=== PATIENT | male | born 1960 | race African-American/Black ===

== ENCOUNTER 2020-06-27 10:00 | Inpatient (IN) ==
[2020-06-27 10:39] LABS: Basophils % 0.2 % (0.0-0.8); Eosinophils % 0.3 % (0.00-10.9); Hematocrit 44.8 VOL% (42.0-52.0); Hemoglobin 15.1 GM/DL (14.0-18.0); Immature Granulocytes % 0.5 %; Immature Granulocytes Absolute 0.05 #; Lymphocytes # 2.5 10*3/uL (1.4-4.0); Mean Corpuscular HGB Conc 33.7 GM/DL (32-36); Mean Corpuscular Volume 91.8 FL (87-102); Monocytes % 10.5 % (1.7-12.7); Neutrophils % 65.5 % (38.7-73.9); Red Blood Count 4.88 MC/CUMM (3.8-5.5); Red Cell Distribution Width 15.2 % (9.3-17.3); White Blood Count 10.8 T/CUMM (4-12)
[2020-06-27 10:49] LABS: Platelet Count 1 T/CUMM (130-400)
[2020-06-27 11:03] LABS: Albumin 4.1 G/DL (3.4-5.0); Bilirubin,Total 1.4 MG/DL (0.2-1.0); Calcium 10.1 MG/DL (8.5-10.1); Osmolality,Calculated 269.4 MOS/KG (273-304); Total Protein 9.3 G/DL (6.4-8.3)
[2020-06-27 11:20] LABS: PT Patient Result 11.2 SECS (9.8-11.9)
[2020-06-27 11:50] LABS: Albumin 4.2 G/DL (3.4-5.0); Bilirubin,Total 1.4 MG/DL (0.2-1.0); Calcium 9.5 MG/DL (8.5-10.1); Osmolality,Calculated 273.1 MOS/KG (273-304); Total Protein 8.9 G/DL (6.4-8.3)
[2020-06-27] MEDS ORDERED: GLUCAGON 1 MG VIAL IM PRN (13:33)
[2020-06-27] MEDS ORDERED: DEXTROSE 50% 25 GM/50 ML VIAL IV PRN ×2 (13:33→13:38)
[2020-06-27] MEDS: SODIUM CHLORIDE 0.9% 1,000 ML IV SCH (16:14)
[2020-06-27 16:21] LABS: Bilirubin,Urine Negative (Negative); Blood, Urine Moderate mg/dL (Negative); Glucose,Urine (UA) Negative (Negative); Ketones,Urine Negative (Negative); Mucus,Urine Occasional /LPF (Occasional); Nitrite,Urine Negative (Negative); Protein,Urine Negative; RBC,Urine 5 /HPF (0-4); Squamous Epithelial Cell,Urine Occasional /HPF (0-10); Urine Appearance CLEAR (Clear); Urine Color Yellow (Yellow); Urine Specific Gravity 1.015 (1.001-1.035); Urine Urobilinogen < 2.0 EU/DL (0.2-1.0); WBC,Urine 1 /HPF (0-6)
[2020-06-27] MEDS ORDERED: SODIUM CHLORIDE 0.9% 1,000 ML IV PRN (18:15)
[2020-06-27] MEDS ORDERED: IMMUNE GLOBULIN 10% 20 GM, IMMUNE GLOBULIN 10% 10 GM in PREMIX 1 EACH IV ONE (18:30)
[2020-06-27] MEDS ORDERED: INFLUENZA VIRUS VACCINE 0.5 ML SYRINGE IM ONE (18:37)
[2020-06-27] MEDS: BRIMONIDINE 0.2% OPH SOLN 5 ML BOTTLE BOTH EYES SCH (22:16)
[2020-06-27] MEDS: methylPREDNISolone SOD SUC 40 MG/1 ML VIAL IV SCH (22:16)
[2020-06-27] MEDS: FERROUS SULFATE 325 MG TABLET PO SCH (22:17)
[2020-06-27] MEDS: DORZOLAMIDE/TIMOLOL OPH SOLN 10 ML BOTTLE BOTH EYES SCH (22:17)
[2020-06-27] MEDS: carvediloL 6.25 MG TABLET PO SCH (22:17)
[2020-06-28 05:36] LABS: Basophils % 0.1 % (0.0-0.8); Hematocrit 39.9 VOL% (42.0-52.0); Hemoglobin 13.1 GM/DL (14.0-18.0); Immature Granulocytes % 0.5 %; Immature Granulocytes Absolute 0.04 #; Lymphocytes # 0.8 10*3/uL (1.4-4.0); Lymphocytes % 10.4 % (21.2-54.2); Mean Corpuscular HGB Conc 32.8 GM/DL (32-36); Mean Corpuscular Volume 92.8 FL (87-102); Monocytes % 1.2 % (1.7-12.7); Neutrophils % 87.8 % (38.7-73.9); White Blood Count 7.6 T/CUMM (4-12)
[2020-06-28] MEDS: SODIUM CHLORIDE 0.9% 1,000 ML IV SCH ×2 (05:47→20:56)
[2020-06-28 05:51] LABS: Albumin 3.3 G/DL (3.4-5.0); Bilirubin,Total 1.3 MG/DL (0.2-1.0); Total Protein 8.5 G/DL (6.4-8.3)
[2020-06-28 06:25] LABS: Platelet Count 1 T/CUMM (130-400)
[2020-06-28] MEDS: BRIMONIDINE 0.2% OPH SOLN 5 ML BOTTLE BOTH EYES SCH ×2 (08:46→20:57)
[2020-06-28] MEDS: methylPREDNISolone SOD SUC 40 MG/1 ML VIAL IV SCH ×2 (08:46→20:57)
[2020-06-28] MEDS: carvediloL 6.25 MG TABLET PO SCH ×2 (08:46→17:16)
[2020-06-28] MEDS: DORZOLAMIDE/TIMOLOL OPH SOLN 10 ML BOTTLE BOTH EYES SCH ×3 (08:46→20:57)
[2020-06-28] MEDS: CHOLECALCIFEROL 5,000 UNIT TABLET PO SCH (08:46)
[2020-06-28] MEDS: FERROUS SULFATE 325 MG TABLET PO SCH ×2 (08:47→20:57)
[2020-06-28] MEDS: lisinopriL 20 MG TABLET PO SCH (12:13)
[2020-06-28] MEDS: INSULIN LISPRO 100 UNIT/ML SUBCUT SCH ×3 (12:30→20:56)
[2020-06-28] MEDS ORDERED: LIDOCAINE 2% VISCOUS 100 ML BOTTLE SWISH/SPIT ONE (14:42)
[2020-06-29] MEDS: methylPREDNISolone SOD SUC 40 MG/1 ML VIAL IV SCH ×2 (05:38→17:57)
[2020-06-29 07:07] LABS: Basophils % 0.1 % (0.0-0.8); Hematocrit 34.6 VOL% (42.0-52.0); Hemoglobin 11.6 GM/DL (14.0-18.0); Immature Granulocytes % 0.7 %; Immature Granulocytes Absolute 0.09 #; Lymphocytes % 7.5 % (21.2-54.2); Mean Corpuscular HGB Conc 33.5 GM/DL (32-36); Monocytes % 2.1 % (1.7-12.7); Neutrophils % 89.6 % (38.7-73.9); Red Blood Count 3.76 MC/CUMM (3.8-5.5); Red Cell Distribution Width 14.7 % (9.3-17.3); White Blood Count 13.6 T/CUMM (4-12)
[2020-06-29 07:21] LABS: Osmolality,Calculated 284.7 MOS/KG (273-304)
[2020-06-29 07:38] LABS: Platelet Count 5 T/CUMM (130-400)
[2020-06-29 07:42] LABS: Platelet Estimate Decreased
[2020-06-29] MEDS ORDERED: hydrALAZINE 20 MG/1 ML VIAL IV ONE (08:47)
[2020-06-29] MEDS: INSULIN LISPRO 100 UNIT/ML SUBCUT SCH ×4 (08:59→21:01)
[2020-06-29] MEDS: CHOLECALCIFEROL 5,000 UNIT TABLET PO SCH (09:00)
[2020-06-29] MEDS: FERROUS SULFATE 325 MG TABLET PO SCH ×2 (09:00→21:01)
[2020-06-29] MEDS: hydroCHLOROthiazide 25 MG TABLET PO SCH (09:00)
[2020-06-29] MEDS: lisinopriL 20 MG TABLET PO SCH (09:00)
[2020-06-29] MEDS: DORZOLAMIDE/TIMOLOL OPH SOLN 10 ML BOTTLE BOTH EYES SCH ×3 (09:00→21:21)
[2020-06-29] MEDS: carvediloL 6.25 MG TABLET PO SCH (09:00)
[2020-06-29] MEDS: BRIMONIDINE 0.2% OPH SOLN 5 ML BOTTLE BOTH EYES SCH ×2 (09:01→21:22)
[2020-06-29] MEDS: SODIUM CHLORIDE 0.9% 1,000 ML IV SCH (10:56)
[2020-06-29] MEDS ORDERED: DEXAMETHASONE 4 MG/1 ML VIAL IV ONE (11:56)
[2020-06-29] MEDS ORDERED: SODIUM CHLORIDE 0.9% 1,000 ML IV PRN (11:57)
[2020-06-29] MEDS ORDERED: diphenhydrAMINE 50 MG/1 ML VIAL IV ONE (13:00)
[2020-06-29] MEDS ORDERED: ACETAMINOPHEN 325 MG TABLET PO ONE (13:00)
[2020-06-29] MEDS ORDERED: FAMOTIDINE 20 MG/2 ML VIAL IV ONE (13:00)
[2020-06-29] MEDS ORDERED: DEXAMETHASONE INJ 20 MG in SODIUM CHLORIDE 0.9% 50 ML IV ONE (13:00)
[2020-06-29] MEDS ORDERED: SODIUM CHLORIDE 0.9% IV ONE (14:00)
[2020-06-29] MEDS ORDERED: RITUXIMAB ABBS IV ONE (14:00)
[2020-06-29] MEDS: hydrALAZINE 20 MG/1 ML VIAL IV PRN ×2 (16:57→23:08)
[2020-06-29] MEDS: carvediloL 12.5 MG TABLET PO SCH (21:01)
[2020-06-30] MEDS: methylPREDNISolone SOD SUC 40 MG/1 ML VIAL IV SCH ×2 (05:47→19:29)
[2020-06-30 06:01] LABS: Hematocrit 32.1 VOL% (42.0-52.0); Hemoglobin 10.8 GM/DL (14.0-18.0); Immature Granulocytes % 0.8 %; Immature Granulocytes Absolute 0.09 #; Lymphocytes # 0.3 10*3/uL (1.4-4.0); Mean Corpuscular HGB Conc 33.6 GM/DL (32-36); Mean Corpuscular Volume 92.2 FL (87-102); Neutrophils % 94.2 % (38.7-73.9); Red Blood Count 3.48 MC/CUMM (3.8-5.5); Red Cell Distribution Width 15.1 % (9.3-17.3); White Blood Count 11.2 T/CUMM (4-12)
[2020-06-30 06:02] LABS: Platelet Count 23 T/CUMM (130-400)
[2020-06-30 06:28] LABS: Calcium 9.5 MG/DL (8.5-10.1)
[2020-06-30 06:43] LABS: Hypochromasia 1+; Lymphocytes 4 % (20-55); Ovalocytes Slight; Platelet Estimate Decreased; Segmented Neutrophils 94 % (50-85); Total Cells Counted 100
[2020-06-30] MEDS ORDERED: INSULIN GLARGINE 100 UNIT/ML SUBCUT SCH (09:00)
[2020-06-30] MEDS: FERROUS SULFATE 325 MG TABLET PO SCH ×2 (09:04→20:56)
[2020-06-30] MEDS: hydroCHLOROthiazide 25 MG TABLET PO SCH (09:04)
[2020-06-30] MEDS: lisinopriL 20 MG TABLET PO SCH (09:04)
[2020-06-30] MEDS: carvediloL 12.5 MG TABLET PO SCH ×2 (09:04→20:55)
[2020-06-30] MEDS: CHOLECALCIFEROL 5,000 UNIT TABLET PO SCH (09:04)
[2020-06-30] MEDS: INSULIN LISPRO 100 UNIT/ML SUBCUT SCH ×4 (09:05→20:56)
[2020-06-30] MEDS: BRIMONIDINE 0.2% OPH SOLN 5 ML BOTTLE BOTH EYES SCH ×2 (09:05→20:55)
[2020-06-30] MEDS: DORZOLAMIDE/TIMOLOL OPH SOLN 10 ML BOTTLE BOTH EYES SCH ×3 (09:05→20:55)
[2020-06-30] MEDS: hydrALAZINE 25 MG TABLET PO SCH ×2 (16:58→20:55)
[2020-06-30] MEDS: INSULIN GLARGINE 100 UNIT/ML SUBCUT SCH (19:29)
[2020-07-01 06:46] LABS: Calcium 9.8 MG/DL (8.5-10.1)
[2020-07-01 07:01] LABS: Basophils % 0.1 % (0.0-0.8); Hematocrit 32.9 VOL% (42.0-52.0); Hemoglobin 11.2 GM/DL (14.0-18.0); Immature Granulocytes % 1.2 %; Immature Granulocytes Absolute 0.14 #; Lymphocytes # 0.6 10*3/uL (1.4-4.0); Lymphocytes % 4.6 % (21.2-54.2); Mean Corpuscular Volume 91.6 FL (87-102); Monocytes % 5.6 % (1.7-12.7); Neutrophils % 88.5 % (38.7-73.9); Red Blood Count 3.59 MC/CUMM (3.8-5.5); Red Cell Distribution Width 14.9 % (9.3-17.3); White Blood Count 12.1 T/CUMM (4-12)
[2020-07-01 07:08] LABS: Platelet Count 19 T/CUMM (130-400)
[2020-07-01] MEDS: methylPREDNISolone SOD SUC 40 MG/1 ML VIAL IV SCH ×2 (07:08→17:34)
[2020-07-01 08:00] LABS: Band Neutrophils 3 % (0-10); Lymphocytes 6 % (20-55); Segmented Neutrophils 86 % (50-85); Total Cells Counted 100
[2020-07-01 08:01] LABS: Hypochromasia 3+; Platelet Estimate Decreased
[2020-07-01] MEDS ORDERED: cloNIDine 0.1 MG/24 HR PATCH TRANSDERM SCH (09:00)
[2020-07-01] MEDS: hydrALAZINE 20 MG/1 ML VIAL IV PRN ×2 (09:09→16:42)
[2020-07-01] MEDS: INSULIN GLARGINE 100 UNIT/ML SUBCUT SCH (09:09)
[2020-07-01] MEDS: lisinopriL 20 MG TABLET PO SCH (09:10)
[2020-07-01] MEDS: INSULIN LISPRO 100 UNIT/ML SUBCUT SCH ×4 (09:10→21:38)
[2020-07-01] MEDS: CHOLECALCIFEROL 5,000 UNIT TABLET PO SCH (09:10)
[2020-07-01] MEDS: hydroCHLOROthiazide 25 MG TABLET PO SCH (09:11)
[2020-07-01] MEDS: DORZOLAMIDE/TIMOLOL OPH SOLN 10 ML BOTTLE BOTH EYES SCH ×3 (09:11→21:12)
[2020-07-01] MEDS: hydrALAZINE 25 MG TABLET PO SCH ×3 (09:11→21:11)
[2020-07-01] MEDS: BRIMONIDINE 0.2% OPH SOLN 5 ML BOTTLE BOTH EYES SCH ×2 (09:11→21:12)
[2020-07-01] MEDS: carvediloL 12.5 MG TABLET PO SCH ×2 (09:11→21:11)
[2020-07-01] MEDS: FERROUS SULFATE 325 MG TABLET PO SCH ×2 (09:11→21:12)
[2020-07-02] MEDS: methylPREDNISolone SOD SUC 40 MG/1 ML VIAL IV SCH ×2 (06:39→18:26)
[2020-07-02 06:51] LABS: Basophils % 0.1 % (0.0-0.8); Hematocrit 35.4 VOL% (42.0-52.0); Hemoglobin 12.2 GM/DL (14.0-18.0); Immature Granulocytes % 0.8 %; Immature Granulocytes Absolute 0.09 #; Lymphocytes # 0.9 10*3/uL (1.4-4.0); Lymphocytes % 7.9 % (21.2-54.2); Mean Corpuscular HGB Conc 34.5 GM/DL (32-36); Mean Platelet Volume 12.4 FL (9.6-12.0); Monocytes % 6.4 % (1.7-12.7); Neutrophils % 84.8 % (38.7-73.9); Red Blood Count 3.89 MC/CUMM (3.8-5.5); Red Cell Distribution Width 14.6 % (9.3-17.3); White Blood Count 10.9 T/CUMM (4-12)
[2020-07-02 06:54] LABS: Platelet Count 33 T/CUMM (130-400)
[2020-07-02 07:10] LABS: Calcium 9.5 MG/DL (8.5-10.1); Osmolality,Calculated 281.1 MOS/KG (273-304)
[2020-07-02 07:11] LABS: Anisocytosis 2+; Platelet Estimate Decreased
[2020-07-02 07:12] LABS: Macrocytosis Slight
[2020-07-02] MEDS ORDERED: MORPHINE 4 MG/1 ML VIAL IV PRN (08:40)
[2020-07-02] MEDS: CHOLECALCIFEROL 5,000 UNIT TABLET PO SCH (09:22)
[2020-07-02] MEDS: hydrALAZINE 25 MG TABLET PO SCH ×3 (09:23→20:54)
[2020-07-02] MEDS: FERROUS SULFATE 325 MG TABLET PO SCH ×2 (09:23→20:55)
[2020-07-02] MEDS: hydroCHLOROthiazide 25 MG TABLET PO SCH (09:23)
[2020-07-02] MEDS: carvediloL 12.5 MG TABLET PO SCH ×2 (09:23→20:54)
[2020-07-02] MEDS: BRIMONIDINE 0.2% OPH SOLN 5 ML BOTTLE BOTH EYES SCH ×2 (09:26→20:57)
[2020-07-02] MEDS: DORZOLAMIDE/TIMOLOL OPH SOLN 10 ML BOTTLE BOTH EYES SCH ×3 (09:27→20:57)
[2020-07-02] MEDS: lisinopriL 20 MG TABLET PO SCH (09:32)
[2020-07-02] MEDS: INSULIN LISPRO 100 UNIT/ML SUBCUT SCH ×4 (09:33→20:55)
[2020-07-02] MEDS: INSULIN GLARGINE 100 UNIT/ML SUBCUT SCH (09:33)
[2020-07-03] MEDS: methylPREDNISolone SOD SUC 40 MG/1 ML VIAL IV SCH (05:58)
[2020-07-03 06:03] LABS: Basophils % 0.1 % (0.0-0.8); Hematocrit 37.4 VOL% (42.0-52.0); Hemoglobin 12.7 GM/DL (14.0-18.0); Immature Granulocytes % 0.7 %; Immature Granulocytes Absolute 0.06 #; Lymphocytes # 0.7 10*3/uL (1.4-4.0); Lymphocytes % 8.4 % (21.2-54.2); Mean Corpuscular Volume 91.4 FL (87-102); Mean Platelet Volume 12.6 FL (9.6-12.0); Monocytes % 3.5 % (1.7-12.7); Neutrophils % 87.3 % (38.7-73.9); Red Blood Count 4.09 MC/CUMM (3.8-5.5); Red Cell Distribution Width 14.5 % (9.3-17.3); White Blood Count 8.6 T/CUMM (4-12)
[2020-07-03 06:04] LABS: Platelet Count 49 T/CUMM (130-400)
[2020-07-03 06:42] LABS: Platelet Estimate Decreased
[2020-07-03 06:43] LABS: Anisocytosis 1+; Macrocytosis 1+
[2020-07-03] MEDS ORDERED: CYANOCOBALAMIN 1000 MCG/1 ML VIAL IM SCH (09:00)
[2020-07-03] MEDS: hydroCHLOROthiazide 25 MG TABLET PO SCH (09:01)
[2020-07-03] MEDS: hydrALAZINE 25 MG TABLET PO SCH (09:02)
[2020-07-03] MEDS: lisinopriL 20 MG TABLET PO SCH (09:02)
[2020-07-03] MEDS: carvediloL 12.5 MG TABLET PO SCH (09:03)
[2020-07-03] MEDS: CHOLECALCIFEROL 5,000 UNIT TABLET PO SCH (09:03)
[2020-07-03] MEDS: DORZOLAMIDE/TIMOLOL OPH SOLN 10 ML BOTTLE BOTH EYES SCH (09:04)
[2020-07-03] MEDS: BRIMONIDINE 0.2% OPH SOLN 5 ML BOTTLE BOTH EYES SCH (09:05)
[2020-07-03] MEDS: FERROUS SULFATE 325 MG TABLET PO SCH (09:06)
[2020-07-03] MEDS: INSULIN LISPRO 100 UNIT/ML SUBCUT SCH ×2 (09:07→12:10)
[2020-07-03 11:47] VITALS: BP 179/54
[2020-07-03] MEDS: INSULIN GLARGINE 100 UNIT/ML SUBCUT SCH (12:10)
== END 2020-07-03 14:00 | disposition home or self-care (01) | DRG 813 ==
LOC: N.ED 10:00 → SUATTDRO 13:33 → N.EDINP 14:05 → N.TELES 17:27 → N.4E 06-29 13:34
PROVIDERS: ADMIT Family Medicine; ATTEND Hospitalist

== ENCOUNTER 2022-07-02 11:28 | Inpatient (IN) ==
[2022-07-02] MEDS ORDERED: EPINEPHrine 1 MG/10 ML SYRINGE IV ONE (11:31)
[2022-07-02] MEDS ORDERED: SODIUM BICARBONATE 50 MEQ/50 ML SYRINGE IV ONE (11:33)
[2022-07-02] MEDS ORDERED: HEPARIN 5,000 UNIT/1 ML VIAL IV STA (11:45)
[2022-07-02] MEDS ORDERED: ASPIRIN 300 MG SUPP RECTAL STA (11:45)
[2022-07-02] MEDS ORDERED: propofoL 200 MG/20 ML VIAL IV ONE (11:55)
[2022-07-02] MEDS ORDERED: METOPROLOL TARTRATE 5 MG/5 ML VIAL IV ONE ×4 (11:55→14:26)
[2022-07-02 12:13] LABS: Red Blood Count 4.73 MC/CUMM (3.8-5.5); White Blood Count 12.9 T/CUMM (4-12)
[2022-07-02 12:14] LABS: Hematocrit 49.8 VOL% (42.0-52.0); Hemoglobin 16.1 GM/DL (14.0-18.0); Mean Corpuscular HGB Conc 32.3 GM/DL (32-36); Mean Corpuscular Volume 105.3 FL (87-102); Neutrophils % 36.4 % (38.7-73.9); Platelet Count 220 T/CUMM (130-400); Red Cell Distribution Width 14.1 % (9.3-17.3)
[2022-07-02 12:15] LABS: Basophils % 0.4 % (0.0-0.8); Eosinophils % 0.3 % (0.00-10.9); Immature Granulocytes % 0.2 %; Lymphocytes % 55.6 % (21.2-54.2); Monocytes % 7.1 % (1.7-12.7)
[2022-07-02 12:21] LABS: Basophils # 0.1 10*3/uL (0.0-0.2); Immature Granulocytes Absolute 0.03 #; Lymphocytes # 7.2 10*3/uL (1.4-4.0); Monocytes # 0.9 10*3/uL (0.11-0.8)
[2022-07-02] MEDS ORDERED: ACETAMINOPHEN 325 MG TABLET PO PRN (12:23)
[2022-07-02] MEDS ORDERED: CALCIUM CARBONATE CHEW 500 MG TABLET PO PRN (12:23)
[2022-07-02] MEDS ORDERED: ONDANSETRON 4 MG/2 ML VIAL IV PRN (12:23)
[2022-07-02] MEDS ORDERED: BISACODYL 5 MG TABLET PO PRN (12:23)
[2022-07-02] MEDS ORDERED: SIMETHICONE CHEW 125 MG TABLET PO PRN (12:23)
[2022-07-02] MEDS ORDERED: ALUMINUM/MAGNES/SIMETH MAX STR 30 ML UDCUP PO PRN (12:23)
[2022-07-02] MEDS ORDERED: LACTULOSE 20 GM/30 ML UDCUP PO PRN (12:23)
[2022-07-02] MEDS ORDERED: hydrALAZINE 20 MG/1 ML VIAL ONE ×2 (12:27→12:51)
[2022-07-02 12:30] LABS: Albumin 3.9 G/DL (3.4-5.0); Bilirubin,Total 0.4 MG/DL (0.20-1.00); Potassium 4.5 MMOL/L (3.5-5.1); Total Protein 7.8 G/DL (6.4-8.2)
[2022-07-02] MEDS ORDERED: LACTATED RINGERS 2,000 ML IV ONE (12:39)
[2022-07-02] MEDS ORDERED: SODIUM CHLORIDE 0.9% 1,000 ML IV SCH (13:00)
[2022-07-02] MEDS ORDERED: FUROSEMIDE 40 MG/4 ML VIAL IV ONE ×2 (13:03→18:00)
[2022-07-02 13:10] LABS: Lymphocytes 57 % (20-55); Platelet Estimate Normal; Total Cells Counted 100
[2022-07-02 13:11] LABS: Atypical Lymphocytes Few
[2022-07-02] MEDS ORDERED: GLUCAGON 1 MG VIAL IM PRN (13:23)
[2022-07-02] MEDS ORDERED: DEXTROSE 10% 250 ML BAG IV PRN (13:30)
[2022-07-02 13:59] LABS: ABG Base Excess -9.4 MMOL/L (-2.5-2.5); ABG HCO3 17.1 MMOL/L (20-26); ABG Oxygen Saturation 99.2 % (95-100); ABG PCO2 44.8 MM HG (35-48); ABG PH 7.225 (7.35-7.45); ABG TCO2 16.2 MMOL/L (23-27)
[2022-07-02] MEDS ORDERED: SODIUM BICARBONATE 50 MEQ/50 ML VIAL IV ONE ×2 (14:02→14:03)
[2022-07-02] MEDS: NICOTINE 14 MG/24 HR PATCH TRANSDERM SCH (14:09)
[2022-07-02] MEDS: ENOXAPARIN 40 MG/0.4 ML SYRINGE SUBCUT SCH (14:10)
[2022-07-02 15:02] LABS: Mucus,Urine Occasional /LPF (Occasional); RBC,Urine 2 /HPF (0-4); Squamous Epithelial Cell,Urine Occasional /HPF (0-10)
[2022-07-02 15:06] LABS: Bilirubin,Urine Negative (Negative); Blood, Urine Negative (Negative); Glucose,Urine (UA) 500 mg/dL (Negative); Ketones,Urine Negative (Negative); Nitrite,Urine Negative (Negative); Protein,Urine 30 mg/dL (Negative); Urine Appearance Clear (Clear); Urine Color Yellow (Yellow); Urine pH 5.5 (4.5-8.0)
[2022-07-02 15:07] LABS: Urine Urobilinogen 0.2 eU/dL (<2.0)
[2022-07-02] MEDS: NIFEdipine 10 MG CAPSULE PO SCH ×2 (15:32→20:34)
[2022-07-02 15:44] LABS: Barbiturates Screen,Urine Negative (Negative); Benzodiazepines Screen,Urine Negative (Negative); Cannabinoid Screen,Urine Negative (Negative); Opiate Screen,Urine Negative (Negative); Phencyclidine Screen,Urine Negative (Negative)
[2022-07-02] MEDS: MORPHINE 2 MG/1 ML SYRINGE IV PRN ×2 (16:03→23:29)
[2022-07-02] MEDS: INSULIN LISPRO 100 UNIT/ML SUBCUT SCH ×2 (16:44→20:50)
[2022-07-02] MEDS: carvediloL 12.5 MG TABLET PO SCH (20:33)
[2022-07-02] MEDS: cilostazoL 50 MG TABLET PO SCH (20:33)
[2022-07-02] MEDS: FERROUS SULFATE 325 MG TABLET PO SCH (20:34)
[2022-07-02] MEDS: ROSUVASTATIN 20 MG TABLET PO SCH (20:34)
[2022-07-02] MEDS ORDERED: cilostazoL 100 MG TABLET PO SCH (21:00)
[2022-07-02] MEDS ORDERED: NOREPINEPHRINE 8 MG in SODIUM CHLORIDE 0.9% 242 ML IV PRN (21:24)
[2022-07-02] MEDS ORDERED: NOREPINEPHRINE 4 MG/4 ML VIAL IV ONE (21:25)
[2022-07-02] MEDS: MIDAZOLAM DRIP 100 MG/100 ML PREMIX IV PRN (21:36)
[2022-07-03] MEDS: MORPHINE 2 MG/1 ML SYRINGE IV PRN ×2 (03:36→06:52)
[2022-07-03 04:00] LABS: Arterial Bicarbonate iSTAT 25.6 MMOL/L (20-26); Arterial pH iSTAT 7.416 (7.35-7.45)
[2022-07-03 04:04] LABS: Basophils % 0.1 % (0.0-0.8); Hematocrit 36.6 VOL% (42.0-52.0); Hemoglobin 12.7 GM/DL (14.0-18.0); Immature Granulocytes % 0.4 %; Immature Granulocytes Absolute 0.04 #; Lymphocytes # 1.3 10*3/uL (1.4-4.0); Lymphocytes % 11.1 % (21.2-54.2); Mean Corpuscular HGB Conc 34.7 GM/DL (32-36); Mean Corpuscular Volume 95.3 FL (87-102); Mean Platelet Volume 9.7 FL (9.6-12.0); Monocytes # 0.9 10*3/uL (0.11-0.8); Monocytes % 7.6 % (1.7-12.7); Neutrophils % 80.8 % (38.7-73.9); Platelet Count 175 T/CUMM (130-400); Red Blood Count 3.84 MC/CUMM (3.8-5.5); Red Cell Distribution Width 13.5 % (9.3-17.3); White Blood Count 11.2 T/CUMM (4-12)
[2022-07-03 04:31] LABS: Albumin 3.2 G/DL (3.4-5.0); Bilirubin,Total 0.4 MG/DL (0.20-1.00); Calcium 7.7 MG/DL (8.5-10.1); Osmolality,Calculated 296.6 MOS/KG (273-304); Potassium 3.2 MMOL/L (3.5-5.1); Risk Ratio 3.6; Thyroid Stimulating Hormone 0.488 uIU/ml (0.358-3.74); Total Protein 6.2 G/DL (6.4-8.2); VLDL Cholesterol 78.6 MG/DL
[2022-07-03] MEDS: ASPIRIN EC 81 MG TABLET PO SCH (08:21)
[2022-07-03] MEDS: POTASSIUM CHLORIDE 20 MEQ TABLET PO PRN ×4 (08:21→16:15)
[2022-07-03] MEDS: FERROUS SULFATE 325 MG TABLET PO SCH ×3 (08:21→21:43)
[2022-07-03] MEDS: carvediloL 12.5 MG TABLET PO SCH (08:21)
[2022-07-03] MEDS: NIFEdipine 10 MG CAPSULE PO SCH ×3 (08:22→21:42)
[2022-07-03] MEDS: cilostazoL 50 MG TABLET PO SCH ×3 (08:22→21:42)
[2022-07-03] MEDS: NICOTINE 14 MG/24 HR PATCH TRANSDERM SCH (08:27)
[2022-07-03] MEDS ORDERED: FUROSEMIDE 40 MG/4 ML VIAL IV ONE (08:28)
[2022-07-03] MEDS ORDERED: PANTOPRAZOLE 40 MG TABLET PO SCH (09:00)
[2022-07-03] MEDS: INSULIN LISPRO 100 UNIT/ML SUBCUT SCH ×3 (09:31→16:15)
[2022-07-03] MEDS: METOPROLOL TARTRATE 5 MG/5 ML VIAL IV PRN (09:42)
[2022-07-03] MEDS: carvediloL 25 MG TABLET PO SCH ×3 (11:16→21:43)
[2022-07-03 11:48] LABS: Hepatitis B Core IgM Quant 0.06 Index; Hepatitis B Surface Ag Quant < 0.10 Index; Hepatitis B Surface Ag Result Non-Reactive (NonReactive); Hepatitis C Virus Ab Quant 0.03 Index; Hepatitis C Virus Ab Result Non-Reactive (NonReactive)
[2022-07-03] MEDS: ENOXAPARIN 40 MG/0.4 ML SYRINGE SUBCUT SCH (12:01)
[2022-07-03] MEDS: MIDAZOLAM DRIP 100 MG/100 ML PREMIX IV PRN (15:16)
[2022-07-03] MEDS: ROSUVASTATIN 20 MG TABLET PO SCH ×2 (20:27→21:43)
[2022-07-04] MEDS: INSULIN LISPRO 100 UNIT/ML SUBCUT SCH ×5 (00:06→23:46)
[2022-07-04 03:37] LABS: Basophils % 0.2 % (0.0-0.8); Eosinophils % 0.1 % (0.00-10.9); Hematocrit 34.2 VOL% (42.0-52.0); Hemoglobin 11.7 GM/DL (14.0-18.0); Immature Granulocytes % 0.4 %; Immature Granulocytes Absolute 0.04 #; Lymphocytes # 2.1 10*3/uL (1.4-4.0); Lymphocytes % 19.6 % (21.2-54.2); Mean Corpuscular HGB Conc 34.2 GM/DL (32-36); Mean Corpuscular Volume 97.2 FL (87-102); Mean Platelet Volume 9.7 FL (9.6-12.0); Monocytes # 1.1 10*3/uL (0.11-0.8); Monocytes % 10.2 % (1.7-12.7); Neutrophils % 69.5 % (38.7-73.9); Platelet Count 153 T/CUMM (130-400); Red Blood Count 3.52 MC/CUMM (3.8-5.5); White Blood Count 10.5 T/CUMM (4-12)
[2022-07-04 03:38] LABS: ABG HCO3 25.3 MMOL/L (20-26); ABG Oxygen Saturation 99.6 % (95-100); ABG PH 7.437 (7.35-7.45)
[2022-07-04 03:55] LABS: Bilirubin,Total 0.5 MG/DL (0.20-1.00); Calcium 7.9 MG/DL (8.5-10.1); Osmolality,Calculated 291.8 MOS/KG (273-304); Potassium 3.2 MMOL/L (3.5-5.1); Total Protein 6.2 G/DL (6.4-8.2)
[2022-07-04] MEDS ORDERED: POTASSIUM PHOSPHATE 30 MMOL in SODIUM CHLORIDE 0.9% 250 ML IV ONE (04:30)
[2022-07-04] MEDS: hydrALAZINE 20 MG/1 ML VIAL IV PRN ×2 (04:42→17:00)
[2022-07-04] MEDS ORDERED: NIFEdipine 10 MG CAPSULE PO SCH (09:00)
[2022-07-04] MEDS ORDERED: hydrALAZINE 25 MG TABLET PO SCH (09:00)
[2022-07-04] MEDS: NICOTINE 14 MG/24 HR PATCH TRANSDERM SCH (09:40)
[2022-07-04] MEDS: PANTOPRAZOLE 40 MG VIAL IV SCH (09:40)
[2022-07-04] MEDS: cilostazoL 50 MG TABLET PO SCH (09:45)
[2022-07-04] MEDS: ASPIRIN EC 81 MG TABLET PO SCH (09:45)
[2022-07-04] MEDS: cloNIDine 0.1 MG TABLET PO SCH ×3 (09:45→21:33)
[2022-07-04] MEDS: carvediloL 25 MG TABLET PO SCH ×2 (09:45→21:33)
[2022-07-04] MEDS: FERROUS SULFATE 325 MG TABLET PO SCH ×2 (09:45→21:33)
[2022-07-04] MEDS: lisinopriL 20 MG TABLET PO SCH (09:45)
[2022-07-04] MEDS ORDERED: amLODIPine 5 MG TABLET PO ONE (11:06)
[2022-07-04] MEDS: ENOXAPARIN 40 MG/0.4 ML SYRINGE SUBCUT SCH (13:25)
[2022-07-04] MEDS: MIDAZOLAM DRIP 100 MG/100 ML PREMIX IV PRN (16:50)
[2022-07-04] MEDS: MORPHINE 2 MG/1 ML SYRINGE IV PRN (17:05)
[2022-07-04] MEDS: ROSUVASTATIN 20 MG TABLET PO SCH (21:33)
[2022-07-05 04:07] LABS: ABG Base Excess 0.1 MMOL/L (-2.5-2.5); ABG HCO3 24.5 MMOL/L (20-26); ABG Oxygen Saturation 99.3 % (95-100); ABG PCO2 40.1 MM HG (35-48); ABG TCO2 22.4 MMOL/L (23-27)
[2022-07-05 04:09] LABS: Basophils % 0.1 % (0.0-0.8); Eosinophils % 0.2 % (0.00-10.9); Hematocrit 31.9 VOL% (42.0-52.0); Hemoglobin 10.6 GM/DL (14.0-18.0); Immature Granulocytes % 0.5 %; Immature Granulocytes Absolute 0.04 #; Lymphocytes # 1.2 10*3/uL (1.4-4.0); Lymphocytes % 14.7 % (21.2-54.2); Mean Corpuscular HGB Conc 33.2 GM/DL (32-36); Mean Corpuscular Volume 99.4 FL (87-102); Mean Platelet Volume 9.8 FL (9.6-12.0); Monocytes # 0.7 10*3/uL (0.11-0.8); Neutrophils % 75.5 % (38.7-73.9); Platelet Count 145 T/CUMM (130-400); Red Blood Count 3.21 MC/CUMM (3.8-5.5); Red Cell Distribution Width 14.1 % (9.3-17.3); White Blood Count 8.2 T/CUMM (4-12)
[2022-07-05 04:23] LABS: Alanine Aminotransferase 32 U/L (16-61); Albumin 2.7 G/DL (3.4-5.0); Alkaline Phosphatase 76 U/L (45-117); Aspartate Amino Transferase 33 U/L (0-37); Bilirubin,Total < 0.39 MG/DL (0.20-1.00); Blood Urea Nitrogen 17 MG/DL (7-18); Calcium 8.4 MG/DL (8.5-10.1); Carbon Dioxide 25 MMOL/L (21-32); Chloride 110 MMOL/L (98-107); Glucose 231 MG/DL (74-106); Osmolality,Calculated 289.3 MOS/KG (273-304); Potassium 3.3 MMOL/L (3.5-5.1); Sodium 141 MMOL/L (136-145); Total Protein 6.3 G/DL (6.4-8.2)
[2022-07-05] MEDS: INSULIN LISPRO 100 UNIT/ML SUBCUT SCH ×3 (06:01→17:57)
[2022-07-05] MEDS ORDERED: FUROSEMIDE 40 MG/4 ML VIAL IV ONE (07:48)
[2022-07-05] MEDS: amLODIPine 5 MG TABLET PO SCH (08:15)
[2022-07-05] MEDS: FERROUS SULFATE 325 MG TABLET PO SCH (08:15)
[2022-07-05] MEDS: cloNIDine 0.1 MG TABLET PO SCH ×3 (08:15→20:50)
[2022-07-05] MEDS: lisinopriL 20 MG TABLET PO SCH (08:15)
[2022-07-05] MEDS: ASPIRIN EC 81 MG TABLET PO SCH (08:15)
[2022-07-05] MEDS: carvediloL 25 MG TABLET PO SCH ×2 (08:16→20:50)
[2022-07-05] MEDS: POTASSIUM CHLORIDE 20 MEQ TABLET PO PRN ×3 (08:16→13:51)
[2022-07-05] MEDS: PANTOPRAZOLE 40 MG VIAL IV SCH (08:19)
[2022-07-05] MEDS: ENOXAPARIN 40 MG/0.4 ML SYRINGE SUBCUT SCH (11:57)
[2022-07-05] MEDS: MIDAZOLAM DRIP 100 MG/100 ML PREMIX IV PRN (20:49)
[2022-07-05] MEDS: FERROUS SULFATE 300 MG/5 ML UDCUP PO SCH (20:50)
[2022-07-05] MEDS: ROSUVASTATIN 20 MG TABLET PO SCH (20:50)
[2022-07-05] MEDS: INSULIN GLARGINE 100 UNIT/ML SUBCUT SCH (21:38)
[2022-07-06] MEDS: INSULIN LISPRO 100 UNIT/ML SUBCUT SCH ×5 (00:14→23:48)
[2022-07-06 04:01] LABS: ABG Base Excess 0.4 MMOL/L (-2.5-2.5); ABG HCO3 24.8 MMOL/L (20-26); ABG Oxygen Saturation 98.7 % (95-100); ABG PCO2 39.9 MM HG (35-48); ABG PH 7.406 (7.35-7.45); ABG TCO2 22.7 MMOL/L (23-27)
[2022-07-06 04:06] LABS: Basophils % 0.1 % (0.0-0.8); Eosinophils % 0.4 % (0.00-10.9); Hematocrit 31.1 VOL% (42.0-52.0); Hemoglobin 10.3 GM/DL (14.0-18.0); Immature Granulocytes % 0.4 %; Immature Granulocytes Absolute 0.03 #; Lymphocytes # 1.5 10*3/uL (1.4-4.0); Lymphocytes % 18.6 % (21.2-54.2); Mean Corpuscular HGB Conc 33.1 GM/DL (32-36); Mean Corpuscular Volume 100.6 FL (87-102); Monocytes # 0.7 10*3/uL (0.11-0.8); Monocytes % 8.3 % (1.7-12.7); Neutrophils % 72.2 % (38.7-73.9); Platelet Count 145 T/CUMM (130-400); Red Blood Count 3.09 MC/CUMM (3.8-5.5); Red Cell Distribution Width 14.2 % (9.3-17.3); White Blood Count 8.2 T/CUMM (4-12)
[2022-07-06 04:35] LABS: Calcium 8.5 MG/DL (8.5-10.1); Osmolality,Calculated 291.1 MOS/KG (273-304); Potassium 3.6 MMOL/L (3.5-5.1)
[2022-07-06] MEDS: PANTOPRAZOLE 40 MG VIAL IV SCH (08:45)
[2022-07-06] MEDS: carvediloL 25 MG TABLET PO SCH ×2 (08:50→21:38)
[2022-07-06] MEDS: cloNIDine 0.1 MG TABLET PO SCH ×3 (08:50→21:38)
[2022-07-06] MEDS: cefTRIAXone 1,000 MG in SODIUM CHLORIDE 0.9% 100 ML IV SCH (08:50)
[2022-07-06] MEDS: FERROUS SULFATE 300 MG/5 ML UDCUP PO SCH ×2 (08:50→21:38)
[2022-07-06] MEDS: ASPIRIN EC 81 MG TABLET PO SCH (08:50)
[2022-07-06] MEDS: amLODIPine 5 MG TABLET PO SCH (08:50)
[2022-07-06] MEDS: lisinopriL 20 MG TABLET PO SCH (08:50)
[2022-07-06] MEDS ORDERED: FUROSEMIDE 40 MG/4 ML VIAL IV SCH (09:00)
[2022-07-06] MEDS: ENOXAPARIN 40 MG/0.4 ML SYRINGE SUBCUT SCH (12:15)
[2022-07-06] MEDS: MORPHINE 2 MG/1 ML SYRINGE IV PRN (18:50)
[2022-07-06] MEDS ORDERED: fentaNYL 100 MCG/2 ML VIAL IV ONE (19:44)
[2022-07-06] MEDS: ROSUVASTATIN 20 MG TABLET PO SCH (21:38)
[2022-07-06] MEDS: INSULIN GLARGINE 100 UNIT/ML SUBCUT SCH (21:39)
[2022-07-07 03:39] LABS: ABG Base Excess 1.6 MMOL/L (-2.5-2.5); ABG HCO3 25.9 MMOL/L (20-26); ABG Oxygen Saturation 98.2 % (95-100); ABG PCO2 41.7 MM HG (35-48); ABG TCO2 23.8 MMOL/L (23-27)
[2022-07-07 03:46] LABS: Basophils % 0.2 % (0.0-0.8); Eosinophils # 0.1 10*3/uL (0.0-0.87); Eosinophils % 0.8 % (0.00-10.9); Hemoglobin 10.5 GM/DL (14.0-18.0); Immature Granulocytes % 0.2 %; Immature Granulocytes Absolute 0.02 #; Lymphocytes # 1.2 10*3/uL (1.4-4.0); Lymphocytes % 13.4 % (21.2-54.2); Mean Corpuscular HGB Conc 32.8 GM/DL (32-36); Mean Corpuscular Volume 100.6 FL (87-102); Mean Platelet Volume 9.9 FL (9.6-12.0); Monocytes % 10.8 % (1.7-12.7); Neutrophils % 74.6 % (38.7-73.9); Platelet Count 160 T/CUMM (130-400); Red Blood Count 3.18 MC/CUMM (3.8-5.5); White Blood Count 8.9 T/CUMM (4-12)
[2022-07-07 04:07] LABS: Calcium 8.8 MG/DL (8.5-10.1); Osmolality,Calculated 287.5 MOS/KG (273-304); Phosphorous 3.1 MG/DL (2.5-4.9); Potassium 3.8 MMOL/L (3.5-5.1)
[2022-07-07] MEDS: INSULIN LISPRO 100 UNIT/ML SUBCUT SCH ×3 (05:30→18:48)
[2022-07-07] MEDS ORDERED: ALBUTEROL/IPRATROPIUM 3 ML NEB RESP TX PRN (07:52)
[2022-07-07] MEDS: methylPREDNISolone SOD SUC 40 MG/1 ML VIAL IV SCH ×2 (11:47→21:48)
[2022-07-07] MEDS: ASPIRIN EC 81 MG TABLET PO SCH (11:47)
[2022-07-07] MEDS: cloNIDine 0.1 MG TABLET PO SCH ×3 (11:48→21:47)
[2022-07-07] MEDS: cefTRIAXone 1,000 MG in SODIUM CHLORIDE 0.9% 100 ML IV SCH (11:48)
[2022-07-07] MEDS: amLODIPine 5 MG TABLET PO SCH (11:48)
[2022-07-07] MEDS: FERROUS SULFATE 300 MG/5 ML UDCUP PO SCH ×2 (11:48→21:48)
[2022-07-07] MEDS: carvediloL 25 MG TABLET PO SCH ×2 (11:48→21:47)
[2022-07-07] MEDS: lisinopriL 20 MG TABLET PO SCH (11:49)
[2022-07-07] MEDS: PANTOPRAZOLE 40 MG VIAL IV SCH (11:49)
[2022-07-07] MEDS: MORPHINE 2 MG/1 ML SYRINGE IV PRN (13:54)
[2022-07-07] MEDS: ENOXAPARIN 40 MG/0.4 ML SYRINGE SUBCUT SCH (14:45)
[2022-07-07] MEDS ORDERED: INSULIN GLARGINE 100 UNIT/ML SUBCUT SCH (21:00)
[2022-07-07] MEDS: ROSUVASTATIN 20 MG TABLET PO SCH (21:48)
[2022-07-08] MEDS: INSULIN LISPRO 100 UNIT/ML SUBCUT SCH ×4 (00:06→17:27)
[2022-07-08 03:54] LABS: ABG Base Excess 2.2 MMOL/L (-2.5-2.5); ABG HCO3 26.3 MMOL/L (20-26); ABG PCO2 37.1 MM HG (35-48); ABG PH 7.453 (7.35-7.45); ABG TCO2 23.5 MMOL/L (23-27)
[2022-07-08 04:08] LABS: Hematocrit 29.5 VOL% (42.0-52.0); Hemoglobin 9.9 GM/DL (14.0-18.0); Immature Granulocytes % 0.7 %; Immature Granulocytes Absolute 0.06 #; Lymphocytes # 0.7 10*3/uL (1.4-4.0); Lymphocytes % 7.6 % (21.2-54.2); Mean Corpuscular HGB Conc 33.6 GM/DL (32-36); Mean Platelet Volume 10.3 FL (9.6-12.0); Monocytes # 0.4 10*3/uL (0.11-0.8); Monocytes % 4.7 % (1.7-12.7); Platelet Count 165 T/CUMM (130-400); Red Blood Count 2.98 MC/CUMM (3.8-5.5); Red Cell Distribution Width 13.4 % (9.3-17.3); White Blood Count 8.8 T/CUMM (4-12)
[2022-07-08 04:26] LABS: Calcium 9.1 MG/DL (8.5-10.1); Osmolality,Calculated 299.3 MOS/KG (273-304); Phosphorous 2.9 MG/DL (2.5-4.9); Potassium 4.4 MMOL/L (3.5-5.1)
[2022-07-08] MEDS: methylPREDNISolone SOD SUC 40 MG/1 ML VIAL IV SCH ×2 (08:28→22:20)
[2022-07-08] MEDS: PANTOPRAZOLE 40 MG VIAL IV SCH (08:28)
[2022-07-08] MEDS: amLODIPine 5 MG TABLET PO SCH (08:29)
[2022-07-08] MEDS: carvediloL 25 MG TABLET PO SCH ×2 (08:29→22:27)
[2022-07-08] MEDS: ASPIRIN EC 81 MG TABLET PO SCH (08:29)
[2022-07-08] MEDS: FERROUS SULFATE 300 MG/5 ML UDCUP PO SCH ×2 (08:29→22:13)
[2022-07-08] MEDS: lisinopriL 20 MG TABLET PO SCH (08:29)
[2022-07-08] MEDS: cloNIDine 0.1 MG TABLET PO SCH ×3 (08:29→22:13)
[2022-07-08] MEDS: cefTRIAXone 1,000 MG in SODIUM CHLORIDE 0.9% 100 ML IV SCH (08:53)
[2022-07-08] MEDS ORDERED: INSULIN GLARGINE 100 UNIT/ML SUBCUT ONE (09:19)
[2022-07-08] MEDS ORDERED: LORazepam 2 MG/1 ML VIAL IV ONE (10:36)
[2022-07-08] MEDS: ENOXAPARIN 40 MG/0.4 ML SYRINGE SUBCUT SCH (12:47)
[2022-07-08] MEDS: ROSUVASTATIN 20 MG TABLET PO SCH (22:13)
[2022-07-08] MEDS: INSULIN GLARGINE 100 UNIT/ML SUBCUT SCH (22:14)
[2022-07-09] MEDS: INSULIN LISPRO 100 UNIT/ML SUBCUT SCH ×4 (00:55→18:11)
[2022-07-09 05:03] LABS: Arterial Bicarbonate iSTAT 27.4 MMOL/L (20-26); Arterial pH iSTAT 7.503 (7.35-7.45)
[2022-07-09 05:10] LABS: Basophils % 0.1 % (0.0-0.8); Hematocrit 31.6 VOL% (42.0-52.0); Hemoglobin 10.3 GM/DL (14.0-18.0); Immature Granulocytes % 0.7 %; Immature Granulocytes Absolute 0.08 #; Lymphocytes # 0.9 10*3/uL (1.4-4.0); Lymphocytes % 8.7 % (21.2-54.2); Mean Corpuscular HGB Conc 32.6 GM/DL (32-36); Mean Platelet Volume 10.6 FL (9.6-12.0); Monocytes # 0.6 10*3/uL (0.11-0.8); Monocytes % 5.8 % (1.7-12.7); Neutrophils % 84.7 % (38.7-73.9); Platelet Count 198 T/CUMM (130-400); Red Blood Count 3.16 MC/CUMM (3.8-5.5); Red Cell Distribution Width 13.2 % (9.3-17.3); White Blood Count 10.8 T/CUMM (4-12)
[2022-07-09 05:32] LABS: Calcium 9.3 MG/DL (8.5-10.1); Potassium 4.6 MMOL/L (3.5-5.1)
[2022-07-09] MEDS: PANTOPRAZOLE 40 MG VIAL IV SCH (08:38)
[2022-07-09] MEDS: methylPREDNISolone SOD SUC 40 MG/1 ML VIAL IV SCH ×2 (08:39→21:19)
[2022-07-09] MEDS: FERROUS SULFATE 300 MG/5 ML UDCUP PO SCH ×2 (08:40→21:17)
[2022-07-09] MEDS: ASPIRIN EC 81 MG TABLET PO SCH (08:40)
[2022-07-09] MEDS: amLODIPine 5 MG TABLET PO SCH (08:40)
[2022-07-09] MEDS: cefTRIAXone 1,000 MG in SODIUM CHLORIDE 0.9% 100 ML IV SCH (08:40)
[2022-07-09] MEDS: lisinopriL 20 MG TABLET PO SCH (08:40)
[2022-07-09] MEDS: cloNIDine 0.1 MG TABLET PO SCH ×3 (08:40→21:18)
[2022-07-09] MEDS: carvediloL 25 MG TABLET PO SCH ×2 (11:29→21:18)
[2022-07-09] MEDS: ENOXAPARIN 40 MG/0.4 ML SYRINGE SUBCUT SCH (11:54)
[2022-07-09] MEDS: ALBUTEROL/IPRATROPIUM 3 ML NEB RESP TX SCH (19:08)
[2022-07-09] MEDS: INSULIN GLARGINE 100 UNIT/ML SUBCUT SCH (21:17)
[2022-07-09] MEDS: ROSUVASTATIN 20 MG TABLET PO SCH (21:18)
[2022-07-10] MEDS: ALBUTEROL/IPRATROPIUM 3 ML NEB RESP TX SCH ×4 (00:20→19:09)
[2022-07-10] MEDS: INSULIN LISPRO 100 UNIT/ML SUBCUT SCH ×4 (01:55→17:42)
[2022-07-10 06:27] LABS: Calcium 9.7 MG/DL (8.5-10.1); Osmolality,Calculated 309.3 MOS/KG (273-304)
[2022-07-10 06:40] LABS: Basophils % 0.1 % (0.0-0.8); Hematocrit 34.2 VOL% (42.0-52.0); Immature Granulocytes % 0.5 %; Immature Granulocytes Absolute 0.08 #; Lymphocytes # 1.4 10*3/uL (1.4-4.0); Lymphocytes % 9.4 % (21.2-54.2); Mean Corpuscular HGB Conc 32.2 GM/DL (32-36); Mean Corpuscular Volume 101.5 FL (87-102); Mean Platelet Volume 10.7 FL (9.6-12.0); Monocytes # 1.1 10*3/uL (0.11-0.8); Monocytes % 7.5 % (1.7-12.7); Neutrophils % 82.5 % (38.7-73.9); Platelet Count 245 T/CUMM (130-400); Red Blood Count 3.37 MC/CUMM (3.8-5.5); Red Cell Distribution Width 13.1 % (9.3-17.3); White Blood Count 14.8 T/CUMM (4-12)
[2022-07-10] MEDS: ASPIRIN EC 81 MG TABLET PO SCH (08:27)
[2022-07-10] MEDS: amLODIPine 5 MG TABLET PO SCH (08:27)
[2022-07-10] MEDS: PANTOPRAZOLE 40 MG VIAL IV SCH (08:27)
[2022-07-10] MEDS: carvediloL 25 MG TABLET PO SCH ×2 (08:27→20:32)
[2022-07-10] MEDS: cloNIDine 0.1 MG TABLET PO SCH ×3 (08:27→20:32)
[2022-07-10] MEDS: FERROUS SULFATE 300 MG/5 ML UDCUP PO SCH ×2 (08:27→20:32)
[2022-07-10] MEDS: cefTRIAXone 1,000 MG in SODIUM CHLORIDE 0.9% 100 ML IV SCH (08:28)
[2022-07-10] MEDS: lisinopriL 20 MG TABLET PO SCH (08:37)
[2022-07-10] MEDS: SODIUM CHLORIDE 0.45% 1,000 ML IV SCH ×3 (08:53→22:30)
[2022-07-10] MEDS: ENOXAPARIN 40 MG/0.4 ML SYRINGE SUBCUT SCH (14:43)
[2022-07-10] MEDS: hydrALAZINE 20 MG/1 ML VIAL IV PRN (17:21)
[2022-07-10] MEDS: METOPROLOL TARTRATE 5 MG/5 ML VIAL IV PRN (18:10)
[2022-07-10] MEDS ORDERED: HALOPERIDOL 5 MG/ML AMP IM ONE (18:26)
[2022-07-10] MEDS: ROSUVASTATIN 20 MG TABLET PO SCH (20:32)
[2022-07-10] MEDS: QUEtiapine 25 MG TABLET PO SCH (20:32)
[2022-07-10] MEDS: INSULIN GLARGINE 100 UNIT/ML SUBCUT SCH (20:37)
[2022-07-10] MEDS: methylPREDNISolone SOD SUC 40 MG/1 ML VIAL IV SCH (20:37)
[2022-07-11] MEDS: ALBUTEROL/IPRATROPIUM 3 ML NEB RESP TX SCH ×4 (00:17→19:33)
[2022-07-11] MEDS: INSULIN LISPRO 100 UNIT/ML SUBCUT SCH ×4 (00:41→17:58)
[2022-07-11] MEDS: hydrALAZINE 20 MG/1 ML VIAL IV PRN (04:18)
[2022-07-11 04:31] LABS: Basophils % 0.1 % (0.0-0.8); Hematocrit 33.9 VOL% (42.0-52.0); Hemoglobin 11.1 GM/DL (14.0-18.0); Immature Granulocytes % 0.5 %; Immature Granulocytes Absolute 0.08 #; Lymphocytes # 1.1 10*3/uL (1.4-4.0); Lymphocytes % 7.5 % (21.2-54.2); Mean Corpuscular HGB Conc 32.7 GM/DL (32-36); Mean Platelet Volume 10.3 FL (9.6-12.0); Monocytes # 0.8 10*3/uL (0.11-0.8); Monocytes % 5.1 % (1.7-12.7); Neutrophils % 86.8 % (38.7-73.9); Platelet Count 249 T/CUMM (130-400); Red Blood Count 3.39 MC/CUMM (3.8-5.5); Red Cell Distribution Width 12.7 % (9.3-17.3)
[2022-07-11 04:53] LABS: Calcium 9.2 MG/DL (8.5-10.1); Potassium 4.1 MMOL/L (3.5-5.1)
[2022-07-11] MEDS: carvediloL 25 MG TABLET PO SCH ×2 (09:24→21:08)
[2022-07-11] MEDS: cloNIDine 0.1 MG TABLET PO SCH (09:24)
[2022-07-11] MEDS ORDERED: LORazepam 2 MG/1 ML VIAL IV ONE (09:24)
[2022-07-11] MEDS: lisinopriL 20 MG TABLET PO SCH (09:25)
[2022-07-11] MEDS: amLODIPine 5 MG TABLET PO SCH (09:25)
[2022-07-11] MEDS: ASPIRIN EC 81 MG TABLET PO SCH (09:25)
[2022-07-11] MEDS ORDERED: HALOPERIDOL 5 MG/ML AMP IM PRN (09:25)
[2022-07-11] MEDS: FERROUS SULFATE 300 MG/5 ML UDCUP PO SCH (09:29)
[2022-07-11] MEDS: cefTRIAXone 1,000 MG in SODIUM CHLORIDE 0.9% 100 ML IV SCH (09:29)
[2022-07-11] MEDS: PANTOPRAZOLE 40 MG VIAL IV SCH (09:37)
[2022-07-11] MEDS: FERROUS SULFATE 325 MG TABLET PO SCH ×2 (09:42→21:08)
[2022-07-11] MEDS: ENOXAPARIN 40 MG/0.4 ML SYRINGE SUBCUT SCH (12:32)
[2022-07-11] MEDS: ROSUVASTATIN 20 MG TABLET PO SCH (21:07)
[2022-07-11] MEDS: INSULIN GLARGINE 100 UNIT/ML SUBCUT SCH (21:08)
[2022-07-11] MEDS: QUEtiapine 25 MG TABLET PO SCH (21:08)
[2022-07-11] MEDS: methylPREDNISolone SOD SUC 40 MG/1 ML VIAL IV SCH (21:08)
[2022-07-12] MEDS: ALBUTEROL/IPRATROPIUM 3 ML NEB RESP TX SCH ×4 (00:10→19:05)
[2022-07-12] MEDS: INSULIN LISPRO 100 UNIT/ML SUBCUT SCH ×4 (00:51→17:30)
[2022-07-12 04:42] LABS: Basophils % 0.1 % (0.0-0.8); Hematocrit 34.5 VOL% (42.0-52.0); Hemoglobin 11.3 GM/DL (14.0-18.0); Immature Granulocytes % 0.6 %; Immature Granulocytes Absolute 0.08 #; Lymphocytes % 7.4 % (21.2-54.2); Mean Corpuscular HGB Conc 32.8 GM/DL (32-36); Mean Corpuscular Volume 100.6 FL (87-102); Mean Platelet Volume 10.1 FL (9.6-12.0); Monocytes # 0.3 10*3/uL (0.11-0.8); Monocytes % 2.7 % (1.7-12.7); Neutrophils % 89.2 % (38.7-73.9); Platelet Count 266 T/CUMM (130-400); Red Blood Count 3.43 MC/CUMM (3.8-5.5); Red Cell Distribution Width 12.6 % (9.3-17.3); White Blood Count 12.8 T/CUMM (4-12)
[2022-07-12 04:58] LABS: Calcium 9.2 MG/DL (8.5-10.1); Potassium 4.8 MMOL/L (3.5-5.1)
[2022-07-12] MEDS ORDERED: amLODIPine 10 MG TABLET PO SCH (09:00)
[2022-07-12] MEDS: PANTOPRAZOLE 40 MG VIAL IV SCH (10:20)
[2022-07-12] MEDS: cefTRIAXone 1,000 MG in SODIUM CHLORIDE 0.9% 100 ML IV SCH (10:20)
[2022-07-12] MEDS: lisinopriL 20 MG TABLET PO SCH (10:22)
[2022-07-12] MEDS: carvediloL 25 MG TABLET PO SCH ×2 (10:23→21:11)
[2022-07-12] MEDS: ASPIRIN EC 81 MG TABLET PO SCH (10:23)
[2022-07-12] MEDS: CHOLECALCIFEROL 5,000 UNIT TABLET PO SCH (10:24)
[2022-07-12] MEDS: FERROUS SULFATE 325 MG TABLET PO SCH ×2 (10:24→21:11)
[2022-07-12] MEDS: DORZOLAMIDE/TIMOLOL OPH SOLN 10 ML BOTTLE BOTH EYES SCH ×2 (10:52→21:18)
[2022-07-12] MEDS: BRIMONIDINE 0.2% OPH SOLN 5 ML BOTTLE BOTH EYES SCH ×3 (10:52→21:18)
[2022-07-12] MEDS: ENOXAPARIN 40 MG/0.4 ML SYRINGE SUBCUT SCH (11:42)
[2022-07-12 19:11] LABS: M. Tuberculosis PCR Result Negative (Negative); M. Tuberculosis PCR Source BRONCH WASH
[2022-07-12] MEDS: ROSUVASTATIN 20 MG TABLET PO SCH (21:11)
[2022-07-12] MEDS: QUEtiapine 25 MG TABLET PO SCH (21:11)
[2022-07-12] MEDS: INSULIN GLARGINE 100 UNIT/ML SUBCUT SCH (21:18)
[2022-07-12] MEDS: methylPREDNISolone SOD SUC 40 MG/1 ML VIAL IV SCH (21:18)
[2022-07-12] MEDS: LATANOPROST 0.005% OPH SOLN 2.5 ML BOTTLE BOTH EYES SCH (21:24)
[2022-07-13] MEDS: INSULIN LISPRO 100 UNIT/ML SUBCUT SCH ×5 (00:38→23:49)
[2022-07-13 05:00] LABS: Potassium 4.3 MMOL/L (3.5-5.1)
[2022-07-13] MEDS: ALBUTEROL/IPRATROPIUM 3 ML NEB RESP TX SCH ×4 (07:07→19:37)
[2022-07-13 08:06] LABS: Basophils % 0.1 % (0.0-0.8); Hematocrit 34.5 VOL% (42.0-52.0); Hemoglobin 11.2 GM/DL (14.0-18.0); Immature Granulocytes % 0.7 %; Lymphocytes # 0.9 10*3/uL (1.4-4.0); Lymphocytes % 6.8 % (21.2-54.2); Mean Corpuscular HGB Conc 32.5 GM/DL (32-36); Mean Corpuscular Volume 101.8 FL (87-102); Mean Platelet Volume 10.5 FL (9.6-12.0); Monocytes # 0.3 10*3/uL (0.11-0.8); Monocytes % 2.3 % (1.7-12.7); Neutrophils % 90.1 % (38.7-73.9); Platelet Count 318 T/CUMM (130-400); Red Blood Count 3.39 MC/CUMM (3.8-5.5); Red Cell Distribution Width 12.6 % (9.3-17.3); White Blood Count 13.5 T/CUMM (4-12)
[2022-07-13] MEDS: cefTRIAXone 1,000 MG in SODIUM CHLORIDE 0.9% 100 ML IV SCH (08:26)
[2022-07-13] MEDS: carvediloL 25 MG TABLET PO SCH (08:26)
[2022-07-13] MEDS: ASPIRIN EC 81 MG TABLET PO SCH (08:26)
[2022-07-13] MEDS: BRIMONIDINE 0.2% OPH SOLN 5 ML BOTTLE BOTH EYES SCH ×3 (08:26→20:31)
[2022-07-13] MEDS: lisinopriL 20 MG TABLET PO SCH (08:26)
[2022-07-13] MEDS: DORZOLAMIDE/TIMOLOL OPH SOLN 10 ML BOTTLE BOTH EYES SCH ×2 (08:26→20:30)
[2022-07-13] MEDS: PANTOPRAZOLE 40 MG VIAL IV SCH (08:26)
[2022-07-13] MEDS: FERROUS SULFATE 325 MG TABLET PO SCH ×2 (08:26→20:32)
[2022-07-13] MEDS: CHOLECALCIFEROL 5,000 UNIT TABLET PO SCH (08:27)
[2022-07-13 08:59] LABS: Bilirubin,Total 0.5 MG/DL (0.20-1.00); Calcium 9.1 MG/DL (8.5-10.1); Potassium 3.9 MMOL/L (3.5-5.1); Total Protein 7.9 G/DL (6.4-8.2)
[2022-07-13] MEDS: ENOXAPARIN 40 MG/0.4 ML SYRINGE SUBCUT SCH (12:02)
[2022-07-13] MEDS: hydrALAZINE 20 MG/1 ML VIAL IV PRN (16:49)
[2022-07-13] MEDS: LATANOPROST 0.005% OPH SOLN 2.5 ML BOTTLE BOTH EYES SCH (20:31)
[2022-07-13] MEDS: QUEtiapine 25 MG TABLET PO SCH (20:32)
[2022-07-13] MEDS: INSULIN GLARGINE 100 UNIT/ML SUBCUT SCH (20:32)
[2022-07-13] MEDS: ROSUVASTATIN 20 MG TABLET PO SCH (20:32)
[2022-07-13] MEDS: methylPREDNISolone SOD SUC 40 MG/1 ML VIAL IV SCH (20:36)
[2022-07-13] MEDS ORDERED: carvediloL 12.5 MG TABLET PO SCH (21:00)
[2022-07-14] MEDS: ALBUTEROL/IPRATROPIUM 3 ML NEB RESP TX SCH ×4 (01:00→19:32)
[2022-07-14] MEDS: INSULIN LISPRO 100 UNIT/ML SUBCUT SCH (05:38)
[2022-07-14 08:11] LABS: Basophils % 0.1 % (0.0-0.8); Immature Granulocytes % 0.6 %; Immature Granulocytes Absolute 0.07 #; Lymphocytes # 1.5 10*3/uL (1.4-4.0); Lymphocytes % 12.2 % (21.2-54.2); Mean Corpuscular HGB Conc 33.3 GM/DL (32-36); Mean Corpuscular Volume 97.3 FL (87-102); Mean Platelet Volume 9.6 FL (9.6-12.0); Monocytes # 0.6 10*3/uL (0.11-0.8); Neutrophils % 82.1 % (38.7-73.9); Platelet Count 366 T/CUMM (130-400); Red Cell Distribution Width 12.3 % (9.3-17.3); White Blood Count 12.6 T/CUMM (4-12)
[2022-07-14 08:39] LABS: Calcium 9.1 MG/DL (8.5-10.1); Potassium 4.3 MMOL/L (3.5-5.1)
[2022-07-14 08:42] LABS: Albumin 2.9 G/DL (3.4-5.0); Bilirubin,Total 0.5 MG/DL (0.20-1.00); Calcium 9.5 MG/DL (8.5-10.1); Osmolality,Calculated 287.3 MOS/KG (273-304); Potassium 4.1 MMOL/L (3.5-5.1); Total Protein 7.6 G/DL (6.4-8.2)
[2022-07-14] MEDS: lisinopriL 20 MG TABLET PO SCH (09:45)
[2022-07-14] MEDS: PANTOPRAZOLE 40 MG VIAL IV SCH (09:45)
[2022-07-14] MEDS: ASPIRIN EC 81 MG TABLET PO SCH (09:45)
[2022-07-14] MEDS: FERROUS SULFATE 325 MG TABLET PO SCH ×2 (09:45→20:33)
[2022-07-14] MEDS: BRIMONIDINE 0.2% OPH SOLN 5 ML BOTTLE BOTH EYES SCH ×3 (09:45→20:32)
[2022-07-14] MEDS: carvediloL 6.25 MG TABLET PO SCH ×2 (09:45→16:40)
[2022-07-14] MEDS: DORZOLAMIDE/TIMOLOL OPH SOLN 10 ML BOTTLE BOTH EYES SCH ×2 (09:45→20:32)
[2022-07-14] MEDS: CHOLECALCIFEROL 5,000 UNIT TABLET PO SCH (09:45)
[2022-07-14] MEDS: predniSONE 20 MG TABLET PO SCH ×2 (10:10→20:33)
[2022-07-14] MEDS: ENOXAPARIN 40 MG/0.4 ML SYRINGE SUBCUT SCH (11:43)
[2022-07-14] MEDS: ROSUVASTATIN 20 MG TABLET PO SCH (20:32)
[2022-07-14] MEDS: QUEtiapine 25 MG TABLET PO SCH (20:33)
[2022-07-14] MEDS: INSULIN GLARGINE 100 UNIT/ML SUBCUT SCH (20:33)
[2022-07-14] MEDS: LATANOPROST 0.005% OPH SOLN 2.5 ML BOTTLE BOTH EYES SCH (20:34)
[2022-07-14] MEDS: hydrALAZINE 20 MG/1 ML VIAL IV PRN (22:14)
[2022-07-15] MEDS: ALBUTEROL/IPRATROPIUM 3 ML NEB RESP TX SCH ×4 (00:15→19:22)
[2022-07-15 06:18] LABS: Basophils % 0.1 % (0.0-0.8); Eosinophils # 0.1 10*3/uL (0.0-0.87); Eosinophils % 0.7 % (0.00-10.9); Hematocrit 39.4 VOL% (42.0-52.0); Hemoglobin 13.1 GM/DL (14.0-18.0); Immature Granulocytes % 0.6 %; Immature Granulocytes Absolute 0.08 #; Lymphocytes # 2.7 10*3/uL (1.4-4.0); Lymphocytes % 20.4 % (21.2-54.2); Mean Corpuscular HGB Conc 33.2 GM/DL (32-36); Mean Corpuscular Volume 97.3 FL (87-102); Mean Platelet Volume 9.6 FL (9.6-12.0); Monocytes # 1.2 10*3/uL (0.11-0.8); Neutrophils % 69.2 % (38.7-73.9); Platelet Count 395 T/CUMM (130-400); Red Blood Count 4.05 MC/CUMM (3.8-5.5); Red Cell Distribution Width 12.1 % (9.3-17.3); White Blood Count 13.1 T/CUMM (4-12)
[2022-07-15 06:42] LABS: Calcium 9.4 MG/DL (8.5-10.1); Osmolality,Calculated 284.4 MOS/KG (273-304); Potassium 3.8 MMOL/L (3.5-5.1)
[2022-07-15 06:55] LABS: Albumin 3.1 G/DL (3.4-5.0); Bilirubin,Total 0.6 MG/DL (0.20-1.00); Calcium 9.2 MG/DL (8.5-10.1); Osmolality,Calculated 282.5 MOS/KG (273-304); Potassium 3.8 MMOL/L (3.5-5.1); Total Protein 7.8 G/DL (6.4-8.2)
[2022-07-15] MEDS: lisinopriL 20 MG TABLET PO SCH (08:50)
[2022-07-15] MEDS: FERROUS SULFATE 325 MG TABLET PO SCH ×2 (08:50→20:00)
[2022-07-15] MEDS: carvediloL 6.25 MG TABLET PO SCH (08:50)
[2022-07-15] MEDS: PANTOPRAZOLE 40 MG VIAL IV SCH (08:50)
[2022-07-15] MEDS: CHOLECALCIFEROL 5,000 UNIT TABLET PO SCH (08:51)
[2022-07-15] MEDS: DORZOLAMIDE/TIMOLOL OPH SOLN 10 ML BOTTLE BOTH EYES SCH ×2 (08:51→20:00)
[2022-07-15] MEDS: BRIMONIDINE 0.2% OPH SOLN 5 ML BOTTLE BOTH EYES SCH ×3 (08:51→20:01)
[2022-07-15] MEDS: ASPIRIN EC 81 MG TABLET PO SCH (08:51)
[2022-07-15] MEDS: predniSONE 20 MG TABLET PO SCH ×2 (08:54→20:00)
[2022-07-15] MEDS: ENOXAPARIN 40 MG/0.4 ML SYRINGE SUBCUT SCH (13:57)
[2022-07-15 16:01] LABS: % Iron Saturation 13.2 % (18-50)
[2022-07-15 16:08] LABS: Folate 15.68 NG/ML (5.38-24.0)
[2022-07-15] MEDS: carvediloL 12.5 MG TABLET PO SCH (17:32)
[2022-07-15] MEDS: ROSUVASTATIN 20 MG TABLET PO SCH (20:00)
[2022-07-15] MEDS: QUEtiapine 25 MG TABLET PO SCH (20:00)
[2022-07-15] MEDS: INSULIN GLARGINE 100 UNIT/ML SUBCUT SCH (20:01)
[2022-07-15] MEDS: LATANOPROST 0.005% OPH SOLN 2.5 ML BOTTLE BOTH EYES SCH (20:01)
[2022-07-16] MEDS: ALBUTEROL/IPRATROPIUM 3 ML NEB RESP TX SCH ×4 (00:15→19:05)
[2022-07-16 04:33] LABS: Basophils % 0.1 % (0.0-0.8); Hematocrit 34.7 VOL% (42.0-52.0); Hemoglobin 11.5 GM/DL (14.0-18.0); Immature Granulocytes % 0.7 %; Immature Granulocytes Absolute 0.07 #; Lymphocytes # 1.1 10*3/uL (1.4-4.0); Lymphocytes % 11.1 % (21.2-54.2); Mean Corpuscular HGB Conc 33.1 GM/DL (32-36); Mean Corpuscular Volume 98.9 FL (87-102); Mean Platelet Volume 9.8 FL (9.6-12.0); Monocytes # 0.4 10*3/uL (0.11-0.8); Monocytes % 4.2 % (1.7-12.7); Neutrophils % 83.9 % (38.7-73.9); Platelet Count 353 T/CUMM (130-400); Red Blood Count 3.51 MC/CUMM (3.8-5.5); Red Cell Distribution Width 12.4 % (9.3-17.3); White Blood Count 10.2 T/CUMM (4-12)
[2022-07-16 04:55] LABS: Calcium 8.8 MG/DL (8.5-10.1); Osmolality,Calculated 293.4 MOS/KG (273-304); Potassium 4.5 MMOL/L (3.5-5.1)
[2022-07-16 05:12] LABS: Albumin 2.7 G/DL (3.4-5.0); Bilirubin,Total 0.6 MG/DL (0.20-1.00); Calcium 9.1 MG/DL (8.5-10.1); Osmolality,Calculated 290.5 MOS/KG (273-304); Potassium 4.1 MMOL/L (3.5-5.1); Total Protein 7.1 G/DL (6.4-8.2)
[2022-07-16] MEDS: CHOLECALCIFEROL 5,000 UNIT TABLET PO SCH (08:37)
[2022-07-16] MEDS: lisinopriL 20 MG TABLET PO SCH (08:37)
[2022-07-16] MEDS: ASPIRIN EC 81 MG TABLET PO SCH (08:37)
[2022-07-16] MEDS: predniSONE 20 MG TABLET PO SCH ×2 (08:38→21:39)
[2022-07-16] MEDS: FERROUS SULFATE 325 MG TABLET PO SCH ×2 (08:38→21:39)
[2022-07-16] MEDS: carvediloL 12.5 MG TABLET PO SCH ×2 (08:38→17:21)
[2022-07-16] MEDS: PANTOPRAZOLE 40 MG VIAL IV SCH (09:01)
[2022-07-16] MEDS: BRIMONIDINE 0.2% OPH SOLN 5 ML BOTTLE BOTH EYES SCH ×3 (09:11→22:52)
[2022-07-16] MEDS: DORZOLAMIDE/TIMOLOL OPH SOLN 10 ML BOTTLE BOTH EYES SCH ×2 (09:11→22:52)
[2022-07-16] MEDS: ENOXAPARIN 40 MG/0.4 ML SYRINGE SUBCUT SCH (13:21)
[2022-07-16] MEDS ORDERED: FERRIC GLUCONATE COMPLEX 125 MG in SODIUM CHLORIDE 0.9% 100 ML IV ONE (15:00)
[2022-07-16] MEDS: ROSUVASTATIN 20 MG TABLET PO SCH (21:39)
[2022-07-16] MEDS: QUEtiapine 25 MG TABLET PO SCH (21:39)
[2022-07-16] MEDS: LATANOPROST 0.005% OPH SOLN 2.5 ML BOTTLE BOTH EYES SCH (22:52)
[2022-07-16] MEDS: INSULIN GLARGINE 100 UNIT/ML SUBCUT SCH (23:41)
[2022-07-17] MEDS: ALBUTEROL/IPRATROPIUM 3 ML NEB RESP TX SCH ×4 (00:45→19:55)
[2022-07-17 05:36] LABS: Basophils % 0.1 % (0.0-0.8); Hemoglobin 10.7 GM/DL (14.0-18.0); Immature Granulocytes % 0.4 %; Immature Granulocytes Absolute 0.04 #; Lymphocytes # 1.1 10*3/uL (1.4-4.0); Lymphocytes % 10.4 % (21.2-54.2); Mean Corpuscular HGB Conc 33.4 GM/DL (32-36); Mean Corpuscular Volume 98.5 FL (87-102); Mean Platelet Volume 9.6 FL (9.6-12.0); Monocytes # 0.4 10*3/uL (0.11-0.8); Monocytes % 4.1 % (1.7-12.7); Platelet Count 358 T/CUMM (130-400); Red Blood Count 3.25 MC/CUMM (3.8-5.5); Red Cell Distribution Width 12.5 % (9.3-17.3); White Blood Count 10.5 T/CUMM (4-12)
[2022-07-17 06:00] LABS: Albumin 2.9 G/DL (3.4-5.0); Bilirubin,Total 0.5 MG/DL (0.20-1.00); Calcium 9.1 MG/DL (8.5-10.1); Osmolality,Calculated 287.5 MOS/KG (273-304); Potassium 4.5 MMOL/L (3.5-5.1); Total Protein 6.8 G/DL (6.4-8.2)
[2022-07-17] MEDS: BRIMONIDINE 0.2% OPH SOLN 5 ML BOTTLE BOTH EYES SCH ×3 (08:22→22:05)
[2022-07-17] MEDS: DORZOLAMIDE/TIMOLOL OPH SOLN 10 ML BOTTLE BOTH EYES SCH ×2 (08:23→22:05)
[2022-07-17] MEDS: DAPAGLIFLOZIN 10 MG TABLET PO SCH (08:23)
[2022-07-17] MEDS: CHOLECALCIFEROL 5,000 UNIT TABLET PO SCH (08:23)
[2022-07-17] MEDS: ASPIRIN EC 81 MG TABLET PO SCH (08:23)
[2022-07-17] MEDS: predniSONE 20 MG TABLET PO SCH (08:23)
[2022-07-17] MEDS: carvediloL 12.5 MG TABLET PO SCH ×2 (08:24→16:30)
[2022-07-17] MEDS: lisinopriL 20 MG TABLET PO SCH (08:24)
[2022-07-17] MEDS: FERROUS SULFATE 325 MG TABLET PO SCH ×2 (08:24→22:04)
[2022-07-17] MEDS: PANTOPRAZOLE 40 MG VIAL IV SCH (08:24)
[2022-07-17] MEDS: ENOXAPARIN 40 MG/0.4 ML SYRINGE SUBCUT SCH (12:48)
[2022-07-17] MEDS: QUEtiapine 25 MG TABLET PO SCH (22:04)
[2022-07-17] MEDS: ROSUVASTATIN 20 MG TABLET PO SCH (22:04)
[2022-07-17] MEDS: predniSONE 10 MG TABLET PO SCH (22:04)
[2022-07-17] MEDS: INSULIN GLARGINE 100 UNIT/ML SUBCUT SCH (22:04)
[2022-07-17] MEDS: LATANOPROST 0.005% OPH SOLN 2.5 ML BOTTLE BOTH EYES SCH (23:18)
[2022-07-18] MEDS: ALBUTEROL/IPRATROPIUM 3 ML NEB RESP TX SCH ×4 (00:46→19:30)
[2022-07-18 04:46] LABS: Basophils % 0.1 % (0.0-0.8); Eosinophils % 0.1 % (0.00-10.9); Hematocrit 33.2 VOL% (42.0-52.0); Hemoglobin 10.9 GM/DL (14.0-18.0); Immature Granulocytes % 0.5 %; Immature Granulocytes Absolute 0.05 #; Lymphocytes # 1.5 10*3/uL (1.4-4.0); Lymphocytes % 14.5 % (21.2-54.2); Mean Corpuscular HGB Conc 32.8 GM/DL (32-36); Mean Corpuscular Volume 99.7 FL (87-102); Mean Platelet Volume 10.3 FL (9.6-12.0); Monocytes # 0.6 10*3/uL (0.11-0.8); Neutrophils % 78.8 % (38.7-73.9); Platelet Count 311 T/CUMM (130-400); Red Blood Count 3.33 MC/CUMM (3.8-5.5); Red Cell Distribution Width 12.5 % (9.3-17.3)
[2022-07-18 05:12] LABS: Albumin 2.9 G/DL (3.4-5.0); Bilirubin,Total 0.6 MG/DL (0.20-1.00); Calcium 9.1 MG/DL (8.5-10.1); Potassium 4.4 MMOL/L (3.5-5.1)
[2022-07-18] MEDS: carvediloL 12.5 MG TABLET PO SCH ×2 (09:39→17:28)
[2022-07-18] MEDS: ASPIRIN EC 81 MG TABLET PO SCH (09:41)
[2022-07-18] MEDS: FERROUS SULFATE 325 MG TABLET PO SCH ×2 (09:42→21:18)
[2022-07-18] MEDS: predniSONE 10 MG TABLET PO SCH ×2 (09:44→21:18)
[2022-07-18] MEDS: lisinopriL 20 MG TABLET PO SCH (09:45)
[2022-07-18] MEDS: DAPAGLIFLOZIN 10 MG TABLET PO SCH (09:45)
[2022-07-18] MEDS: DORZOLAMIDE/TIMOLOL OPH SOLN 10 ML BOTTLE BOTH EYES SCH ×2 (09:48→21:18)
[2022-07-18] MEDS: CHOLECALCIFEROL 5,000 UNIT TABLET PO SCH (09:48)
[2022-07-18] MEDS: BRIMONIDINE 0.2% OPH SOLN 5 ML BOTTLE BOTH EYES SCH ×3 (09:49→21:18)
[2022-07-18] MEDS: PANTOPRAZOLE 40 MG VIAL IV SCH (09:50)
[2022-07-18] MEDS: ENOXAPARIN 40 MG/0.4 ML SYRINGE SUBCUT SCH (12:48)
[2022-07-18] MEDS: INSULIN GLARGINE 100 UNIT/ML SUBCUT SCH (21:17)
[2022-07-18] MEDS: QUEtiapine 25 MG TABLET PO SCH (21:18)
[2022-07-18] MEDS: ROSUVASTATIN 20 MG TABLET PO SCH (21:18)
[2022-07-19] MEDS: ALBUTEROL/IPRATROPIUM 3 ML NEB RESP TX SCH ×4 (00:19→19:25)
[2022-07-19] MEDS: LATANOPROST 0.005% OPH SOLN 2.5 ML BOTTLE BOTH EYES SCH (00:54)
[2022-07-19] MEDS: carvediloL 12.5 MG TABLET PO SCH ×2 (07:18→16:30)
[2022-07-19] MEDS: CHOLECALCIFEROL 5,000 UNIT TABLET PO SCH (09:10)
[2022-07-19] MEDS: lisinopriL 20 MG TABLET PO SCH (09:11)
[2022-07-19] MEDS: DAPAGLIFLOZIN 10 MG TABLET PO SCH (09:11)
[2022-07-19] MEDS: predniSONE 10 MG TABLET PO SCH (09:11)
[2022-07-19] MEDS: ASPIRIN EC 81 MG TABLET PO SCH (09:11)
[2022-07-19] MEDS: FERROUS SULFATE 325 MG TABLET PO SCH (09:11)
[2022-07-19] MEDS: PANTOPRAZOLE 40 MG VIAL IV SCH (09:11)
[2022-07-19] MEDS: BRIMONIDINE 0.2% OPH SOLN 5 ML BOTTLE BOTH EYES SCH ×2 (09:12→14:33)
[2022-07-19] MEDS: DORZOLAMIDE/TIMOLOL OPH SOLN 10 ML BOTTLE BOTH EYES SCH ×2 (09:12→22:29)
[2022-07-19] MEDS: ENOXAPARIN 40 MG/0.4 ML SYRINGE SUBCUT SCH (11:54)
[2022-07-19] MEDS ORDERED: IPRATROPIUM 500 MCG/2.5 ML NEB RESP TX ONE (19:09)
[2022-07-19] MEDS ORDERED: ALBUTEROL 2.5 MG/3 ML NEB RESP TX ONE (19:09)
[2022-07-19] MEDS: QUEtiapine 25 MG TABLET PO SCH (22:30)
[2022-07-20] MEDS: LATANOPROST 0.005% OPH SOLN 2.5 ML BOTTLE BOTH EYES SCH ×2 (00:07→23:09)
[2022-07-20] MEDS: ROSUVASTATIN 20 MG TABLET PO SCH ×2 (00:07→23:09)
[2022-07-20] MEDS: FERROUS SULFATE 325 MG TABLET PO SCH ×3 (00:07→23:09)
[2022-07-20] MEDS: INSULIN GLARGINE 100 UNIT/ML SUBCUT SCH ×2 (00:07→23:04)
[2022-07-20] MEDS: BRIMONIDINE 0.2% OPH SOLN 5 ML BOTTLE BOTH EYES SCH ×4 (00:07→23:10)
[2022-07-20] MEDS: predniSONE 10 MG TABLET PO SCH ×3 (00:07→23:09)
[2022-07-20] MEDS ORDERED: ALBUTEROL 2.5 MG/3 ML NEB RESP TX ONE (01:10)
[2022-07-20] MEDS ORDERED: IPRATROPIUM 500 MCG/2.5 ML NEB RESP TX ONE (01:10)
[2022-07-20] MEDS: ALBUTEROL/IPRATROPIUM 3 ML NEB RESP TX SCH ×4 (01:34→18:33)
[2022-07-20 06:07] LABS: Basophils % 0.2 % (0.0-0.8); Eosinophils % 0.2 % (0.00-10.9); Hematocrit 35.3 VOL% (42.0-52.0); Hemoglobin 11.7 GM/DL (14.0-18.0); Immature Granulocytes % 0.4 %; Immature Granulocytes Absolute 0.05 #; Lymphocytes # 1.5 10*3/uL (1.4-4.0); Lymphocytes % 12.1 % (21.2-54.2); Mean Corpuscular HGB Conc 33.1 GM/DL (32-36); Mean Corpuscular Volume 99.2 FL (87-102); Mean Platelet Volume 9.6 FL (9.6-12.0); Monocytes # 0.6 10*3/uL (0.11-0.8); Monocytes % 4.9 % (1.7-12.7); Neutrophils % 82.2 % (38.7-73.9); Platelet Count 394 T/CUMM (130-400); Red Blood Count 3.56 MC/CUMM (3.8-5.5); Red Cell Distribution Width 12.7 % (9.3-17.3)
[2022-07-20 06:24] LABS: Calcium 9.2 MG/DL (8.5-10.1); Osmolality,Calculated 277.8 MOS/KG (273-304)
[2022-07-20] MEDS: carvediloL 12.5 MG TABLET PO SCH ×2 (08:05→17:07)
[2022-07-20] MEDS: DORZOLAMIDE/TIMOLOL OPH SOLN 10 ML BOTTLE BOTH EYES SCH ×2 (10:08→23:06)
[2022-07-20] MEDS: CHOLECALCIFEROL 5,000 UNIT TABLET PO SCH (10:08)
[2022-07-20] MEDS: lisinopriL 20 MG TABLET PO SCH (10:09)
[2022-07-20] MEDS: ASPIRIN EC 81 MG TABLET PO SCH (10:09)
[2022-07-20] MEDS: DAPAGLIFLOZIN 10 MG TABLET PO SCH (10:09)
[2022-07-20] MEDS: PANTOPRAZOLE 40 MG VIAL IV SCH (10:11)
[2022-07-20] MEDS: amLODIPine 5 MG TABLET PO SCH (11:50)
[2022-07-20] MEDS: ENOXAPARIN 40 MG/0.4 ML SYRINGE SUBCUT SCH (13:12)
[2022-07-20] MEDS: QUEtiapine 25 MG TABLET PO SCH (23:07)
[2022-07-21] MEDS: ALBUTEROL/IPRATROPIUM 3 ML NEB RESP TX SCH ×5 (00:10→23:44)
[2022-07-21] MEDS ORDERED: IPRATROPIUM 500 MCG/2.5 ML NEB RESP TX ONE ×3 (07:00→22:56)
[2022-07-21] MEDS ORDERED: ALBUTEROL 2.5 MG/3 ML NEB RESP TX ONE ×2 (07:00→12:51)
[2022-07-21] MEDS: carvediloL 12.5 MG TABLET PO SCH ×2 (08:49→16:06)
[2022-07-21] MEDS: DORZOLAMIDE/TIMOLOL OPH SOLN 10 ML BOTTLE BOTH EYES SCH ×2 (08:49→23:35)
[2022-07-21] MEDS: predniSONE 10 MG TABLET PO SCH ×2 (09:06→23:35)
[2022-07-21] MEDS: FERROUS SULFATE 325 MG TABLET PO SCH ×2 (09:06→23:35)
[2022-07-21] MEDS: PANTOPRAZOLE 40 MG VIAL IV SCH (09:06)
[2022-07-21] MEDS: BRIMONIDINE 0.2% OPH SOLN 5 ML BOTTLE BOTH EYES SCH ×3 (09:06→23:36)
[2022-07-21] MEDS: DAPAGLIFLOZIN 10 MG TABLET PO SCH (09:06)
[2022-07-21] MEDS: lisinopriL 20 MG TABLET PO SCH (09:07)
[2022-07-21] MEDS: CHOLECALCIFEROL 5,000 UNIT TABLET PO SCH (09:07)
[2022-07-21] MEDS: ASPIRIN EC 81 MG TABLET PO SCH (09:07)
[2022-07-21] MEDS: amLODIPine 5 MG TABLET PO SCH (09:07)
[2022-07-21] MEDS: ENOXAPARIN 40 MG/0.4 ML SYRINGE SUBCUT SCH (12:46)
[2022-07-21] MEDS ORDERED: LEVALBUTEROL 1.25 MG/3 ML NEB RESP TX ONE (22:56)
[2022-07-21] MEDS: ROSUVASTATIN 20 MG TABLET PO SCH (23:35)
[2022-07-21] MEDS: QUEtiapine 25 MG TABLET PO SCH (23:35)
[2022-07-21] MEDS: INSULIN GLARGINE 100 UNIT/ML SUBCUT SCH (23:35)
[2022-07-21] MEDS: LATANOPROST 0.005% OPH SOLN 2.5 ML BOTTLE BOTH EYES SCH (23:36)
[2022-07-22] MEDS: ALBUTEROL/IPRATROPIUM 3 ML NEB RESP TX SCH ×3 (07:00→19:32)
[2022-07-22] MEDS: carvediloL 12.5 MG TABLET PO SCH (07:00)
[2022-07-22] MEDS: BRIMONIDINE 0.2% OPH SOLN 5 ML BOTTLE BOTH EYES SCH ×3 (08:56→23:31)
[2022-07-22] MEDS: DORZOLAMIDE/TIMOLOL OPH SOLN 10 ML BOTTLE BOTH EYES SCH ×2 (08:56→23:29)
[2022-07-22] MEDS: ASPIRIN EC 81 MG TABLET PO SCH (09:00)
[2022-07-22] MEDS: predniSONE 10 MG TABLET PO SCH ×2 (09:03→23:29)
[2022-07-22] MEDS: DAPAGLIFLOZIN 10 MG TABLET PO SCH (09:03)
[2022-07-22] MEDS: FERROUS SULFATE 325 MG TABLET PO SCH ×2 (09:03→23:29)
[2022-07-22] MEDS: amLODIPine 5 MG TABLET PO SCH (09:04)
[2022-07-22] MEDS: lisinopriL 20 MG TABLET PO SCH (09:04)
[2022-07-22] MEDS: PANTOPRAZOLE 40 MG VIAL IV SCH (09:04)
[2022-07-22] MEDS: CHOLECALCIFEROL 5,000 UNIT TABLET PO SCH (09:06)
[2022-07-22] MEDS: ENOXAPARIN 40 MG/0.4 ML SYRINGE SUBCUT SCH (12:03)
[2022-07-22] MEDS: ROSUVASTATIN 20 MG TABLET PO SCH (23:29)
[2022-07-22] MEDS: INSULIN GLARGINE 100 UNIT/ML SUBCUT SCH (23:29)
[2022-07-22] MEDS: QUEtiapine 25 MG TABLET PO SCH (23:29)
[2022-07-22] MEDS: LATANOPROST 0.005% OPH SOLN 2.5 ML BOTTLE BOTH EYES SCH (23:30)
[2022-07-22] MEDS: carvediloL 3.125 MG TABLET PO SCH (23:30)
[2022-07-23] MEDS: ALBUTEROL/IPRATROPIUM 3 ML NEB RESP TX SCH ×4 (00:04→18:58)
[2022-07-23 05:13] LABS: Basophils % 0.1 % (0.0-0.8); Eosinophils % 0.1 % (0.00-10.9); Hematocrit 36.1 VOL% (42.0-52.0); Hemoglobin 11.6 GM/DL (14.0-18.0); Immature Granulocytes % 0.4 %; Immature Granulocytes Absolute 0.03 #; Lymphocytes % 13.2 % (21.2-54.2); Mean Corpuscular HGB Conc 32.1 GM/DL (32-36); Mean Corpuscular Volume 101.1 FL (87-102); Mean Platelet Volume 9.7 FL (9.6-12.0); Monocytes # 0.3 10*3/uL (0.11-0.8); Monocytes % 3.8 % (1.7-12.7); Neutrophils % 82.4 % (38.7-73.9); Platelet Count 329 T/CUMM (130-400); Red Blood Count 3.57 MC/CUMM (3.8-5.5); Red Cell Distribution Width 13.1 % (9.3-17.3); White Blood Count 7.7 T/CUMM (4-12)
[2022-07-23 05:42] LABS: Calcium 9.2 MG/DL (8.5-10.1); Osmolality,Calculated 283.8 MOS/KG (273-304)
[2022-07-23] MEDS: lisinopriL 20 MG TABLET PO SCH (09:24)
[2022-07-23] MEDS: PANTOPRAZOLE 40 MG TABLET PO SCH (09:24)
[2022-07-23] MEDS: ASPIRIN EC 81 MG TABLET PO SCH (09:24)
[2022-07-23] MEDS: DAPAGLIFLOZIN 10 MG TABLET PO SCH (09:24)
[2022-07-23] MEDS: amLODIPine 5 MG TABLET PO SCH (09:25)
[2022-07-23] MEDS: CHOLECALCIFEROL 5,000 UNIT TABLET PO SCH (09:25)
[2022-07-23] MEDS: BRIMONIDINE 0.2% OPH SOLN 5 ML BOTTLE BOTH EYES SCH ×3 (09:25→22:25)
[2022-07-23] MEDS: carvediloL 3.125 MG TABLET PO SCH ×2 (09:25→22:23)
[2022-07-23] MEDS: predniSONE 10 MG TABLET PO SCH ×2 (09:25→22:25)
[2022-07-23] MEDS: FERROUS SULFATE 325 MG TABLET PO SCH ×2 (09:25→22:25)
[2022-07-23] MEDS: DORZOLAMIDE/TIMOLOL OPH SOLN 10 ML BOTTLE BOTH EYES SCH ×2 (09:26→22:23)
[2022-07-23] MEDS: PANTOPRAZOLE 40 MG VIAL IV SCH (09:28)
[2022-07-23] MEDS: ENOXAPARIN 40 MG/0.4 ML SYRINGE SUBCUT SCH (11:59)
[2022-07-23] MEDS: ROSUVASTATIN 20 MG TABLET PO SCH (22:24)
[2022-07-23] MEDS: cloNIDine 0.1 MG TABLET PO SCH (22:24)
[2022-07-23] MEDS: INSULIN GLARGINE 100 UNIT/ML SUBCUT SCH (22:25)
[2022-07-23] MEDS: LATANOPROST 0.005% OPH SOLN 2.5 ML BOTTLE BOTH EYES SCH (22:25)
[2022-07-23] MEDS: QUEtiapine 25 MG TABLET PO SCH (22:25)
[2022-07-24] MEDS: ALBUTEROL/IPRATROPIUM 3 ML NEB RESP TX SCH ×2 (00:37→07:27)
[2022-07-24 05:53] LABS: Eosinophils % 0.1 % (0.00-10.9); Hematocrit 37.5 VOL% (42.0-52.0); Hemoglobin 12.2 GM/DL (14.0-18.0); Immature Granulocytes % 0.6 %; Immature Granulocytes Absolute 0.04 #; Lymphocytes # 1.1 10*3/uL (1.4-4.0); Lymphocytes % 15.2 % (21.2-54.2); Mean Corpuscular HGB Conc 32.5 GM/DL (32-36); Mean Corpuscular Volume 100.3 FL (87-102); Mean Platelet Volume 9.7 FL (9.6-12.0); Monocytes # 0.3 10*3/uL (0.11-0.8); Monocytes % 4.3 % (1.7-12.7); Neutrophils % 79.8 % (38.7-73.9); Platelet Count 319 T/CUMM (130-400); Red Blood Count 3.74 MC/CUMM (3.8-5.5); Red Cell Distribution Width 13.3 % (9.3-17.3); White Blood Count 6.9 T/CUMM (4-12)
[2022-07-24] MEDS: carvediloL 3.125 MG TABLET PO SCH (08:26)
[2022-07-24] MEDS: lisinopriL 20 MG TABLET PO SCH (08:26)
[2022-07-24] MEDS: PANTOPRAZOLE 40 MG TABLET PO SCH (08:26)
[2022-07-24] MEDS: amLODIPine 5 MG TABLET PO SCH (08:26)
[2022-07-24] MEDS: ASPIRIN EC 81 MG TABLET PO SCH (08:26)
[2022-07-24] MEDS: CHOLECALCIFEROL 5,000 UNIT TABLET PO SCH (08:26)
[2022-07-24] MEDS: predniSONE 10 MG TABLET PO SCH (08:26)
[2022-07-24] MEDS: DAPAGLIFLOZIN 10 MG TABLET PO SCH (08:26)
[2022-07-24] MEDS: cloNIDine 0.1 MG TABLET PO SCH (08:27)
[2022-07-24] MEDS: FERROUS SULFATE 325 MG TABLET PO SCH (08:27)
[2022-07-24] MEDS: BRIMONIDINE 0.2% OPH SOLN 5 ML BOTTLE BOTH EYES SCH (08:27)
[2022-07-24] MEDS: DORZOLAMIDE/TIMOLOL OPH SOLN 10 ML BOTTLE BOTH EYES SCH (08:33)
[2022-07-24 09:20] VITALS: BP 175/77
== END 2022-07-24 10:50 | disposition swing bed (61) | DRG 207 ==
LOC: N.ED 11:28 → N.ICU 12:06 → SUATTDRO 12:23 → N.TELES 07-16 17:40
PROVIDERS: ADMIT Internal Medicine Cardiovascular Disease; ATTEND Internal Medicine
PROC: CLCCHCL (ICD-10-PCS; 2022-07-02 12:15)